=== PATIENT | male | born 1950 | race Caucasian/White ===

== ENCOUNTER → 2019-12-07 | Emergency (ER) | payer SELFPAY ==
[~2019-12-07] VITALS: Ht 177 cm; Wt 86.3 kg
[~2019-12-07] MED LIST: METO-333 PO
--- NOTE | 2019-12-07 14:17 | ED General ---
General Chief Complaint: Cardiac/General Problems Stated Complaint: HIGH BP - 180/108 Nursing Triage Note: THE PT IS AMBULATORY TO THE ROOM WITHOUT DIFFICULTY. NO DISTRESS OR COMPLAINTS ON ARRIVAL. LOC IS NORMAL FOR THE PT. THE PT RECENTLY RELOCATED TO THIS AREA AND HAS RAN OUT OF HIS BLOOD PRESSURE MEDICATION. Nursing Sepsis Screen: No Definite Risk Source of Information: Patient, Family Exam Limitations: No Limitations History of Present Illness Date Seen by Provider: Dec 07, 2019 Time Seen by Provider: 13:40 Initial Comments Patient is here in route to [place] to take care of his mother. He is traveling with his who is an ICU nurse. Patient had gone to his [facility] and [facility] [place] to refill his prescription. He did note that his blood pressures not as well controlled as it had been previously and there was a change in his generic medicine. He ultimately had to leave to start his trip to [place]. He has his diltiazem. Has had recent checkup with his doctor and has normal labs including normal chemistries and kidney function. Denies chest pain or breathing problems currently. Denies symptoms. When he was talking to the pharmacist, the pharmacist recommended that he follow-up with a doctor to evaluate his blood pressure as it's been in the 180s over 100s. He arrives here for further evaluation. Timing/Duration: Other (2 weeks) Severity: Mild Associated Systoms: No Chest Pain, No Headaches, No Shortness of Air, No Weakness Allergies and Home Medications Patient Home Medication List Home Medication List Reviewed: Yes Review of Systems Review of Systems Constitutional: see HPI; No chills, No fever Respiratory: no symptoms reported Cardiovascular: no symptoms reported Psychiatric/Neurological: No Symptoms Reported Past [id number]-[id number] Hx Past Med/Social Hx: Reviewed Nursing Past Med/Soc Hx Patient Social History Smoking Status: Current Everyday Smoker Recent Foreign Travel: No Contact w/Someone Who Travel: No Recent Infectious Disease Expo: No Physical Abuse: No Sexual Abuse: No Mistreated: No Fear: No Past Medical History Surgeries: Yes Orthopedic Respiratory: No Cardiac: Yes High Cholesterol, Hypertension Family Medical History Reviewed Nursing Family Hx No Pertinent Family Hx Physical Exam Vital Signs Vital Signs - First Documented 12/07/19 13:29 Temp 36.7 Pulse 66 Resp 16 B/P (MAP) 188/99 (128) Capillary Refill : Less Than 3 Seconds Height, Weight, BMI Height: '" Weight: lbs. oz. kg; 27.00 BMI Method: General Appearance: No Apparent Distress, WD/WN Respiratory: Lungs Clear, Normal Breath Sounds Cardiovascular: Regular Rate, Rhythm, No Murmur Neurologic/Psychiatric: Alert, Oriented x3 Progress/Results/Core Measures Suspected Sepsis Recent Fever Within 48 Hours: No Infection Criteria Present: None New/Unexplained Altered Menta: No Sepsis Screen: No Definite Risk SIRS Temperature: Pulse: 66 Respiratory Rate: 16 Blood Pressure 188 /99 Mean: 128 Results/Orders Vital Signs/I&O 12/07/19 13:29 Temp 36.7 Pulse 66 Resp 16 B/P (MAP) 188/99 (128) Capillary Refill : Less Than 3 Seconds Blood Pressure Mean: 128 Progress Note : Progress Note Seen and evaluated. I did have a long conversation with the patient and family regarding treatment of hypertension. We discussed multiple options including initiating medication here versus outpatient. I also discussed workup but he is had recent workup and is otherwise without symptoms. The is an ICU nurse. Ultimately we decided to initiate outpatient treatment with metoprolol 25 twice a day with adjustments as needed. I did give them my number to call if there was concerns. They're appreciative of the care and in agreement with plan. Disc harged home with return precautions. Departure Impression Primary Impression: Uncontrolled hypertension Disposition: HOME, SELF-CARE Condition: Stable Departure-Patient Inst. Decision time for Depature: 14:11 Referrals: JEANINE CAREY MD (PCP/Family) Primary Care Physician Patient Instructions: High Blood Pressure (DC), High Blood Pressure Emergencies Add. Discharge Instructions: All discharge instructions reviewed with patient and/or family. Voiced understanding. Take medications as directed. Follow-up with your doctor on return from [place] for recheck and further evaluation. Continue your blood pressure log as you are currently doing intake that with [place] her doctor. If your systolic blood pressure is below 100 or your heart rate is below 55-60 then hold the metoprolol. If your blood pressure is greater than 160 and her heart rate is above 60 then you may take an extra dose of the metoprolol. Return for chest pain, breathing problems, vision or balance problems, severe headache, weakness or other concerns as needed. Scripts Metoprolol Tartrate (Metoprolol Tartrate) 25 Mg Tablet 25 MG PO BID, #60 TAB Prov: BENEDICT TRIMBLE MD 12/07/19 BENEDICT TRIMBLE MD Dec 07, 2019 14:17
[2019-12-07 14:31] VITALS: BP 180/95
== END ==
LOC: ER 13:05
DX: I10 Essential (primary) hypertension (principal); F17.200 Nicotine dependence, unspecified, uncomplicated
CPT/HCPCS: 99281